=== PATIENT | female | born 1955 | race Caucasian/White ===

== ENCOUNTER → 2016-09-28 | Outpatient (CLI) | payer MEDICAID ==
[~2016-09-28] MED LIST: MYCOSTATIN(NYST15 GM TOP; NORCO 5-325 MG1 TAB PO; NORVASC2.5 MG PO; PRINIVIL OR ZES10 MG PO
[2016-09-28 10:08] LABS: BASOPHIL # 0.1 K/uL (0.0-0.2); BASOPHIL % 0.8 %; EOSINOPHIL # 0.2 K/uL (0.0-0.5); EOSINOPHIL % 2.7 %; HEMOGLOBIN 16.1 g/dL (10.0-15.0); IMMATURE GRANULOCYTE % 0.5 %; LYMPHOCYTE # 1.5 K/uL (0.8-4.0); LYMPHOCYTE % 24.2 %; MCH 32.8 pg (27.0-34.0); MCHC 32.9 gm/dL (32.0-36.5); MCV 99.8 fl (83.0-98.0); MONOCYTE # 0.7 K/uL (0.0-1.0); MONOCYTE % 10.5 %; MPV 10.2 fl (9.4-12.4); NEUTROPHIL # (ANC) 3.8 K/uL (1.8-7.8); NEUTROPHIL % 61.3 %; NRBC % 0 /100WBC (0-0.00); PLATELET COUNT 95 K/uL (150-450); RBC 4.91 M/uL (3.50-5.50); RDW-CV 13.5 % (11.9-14.6); WBC 6.2 K/uL (4.0-11.0)
[2016-09-28 10:30] LABS: ALBUMIN 3.7 gm/dL (3.5-5.0); ALK PHOS 93 IU/L (33-138); ALT 35 IU/L (12-78); ANION GAP 9.2 (10.0-19.0); AST 24 IU/L (10-40); BLOOD UREA NITROGEN 6 mg/dL (6-24); CHLORIDE 105 mMol/L (96-110); CO2 30 mMol/L (22-32); CREATININE 0.7 mg/dL (0.5-1.1); POTASSIUM 4.2 mMol/L (3.7-5.1); SODIUM 140 mMol/L (135-145); TOTAL BILIRUBIN 0.8 mg/dL (0.0-1.5); TOTAL PROTEIN 8.2 g/dL (6.0-8.4)
[2016-09-28 10:45] LABS: ESTIMATED GFR (MDRD EQUATION) > 60
== END | disposition disaster alternative care site (69) ==
LOC: GRAD 09:33
PROVIDERS: Internal Medicine Hematology & Oncology
DX: C34.32 Malignant neoplasm of lower lobe, left bronchus or lung (principal); D69.6 Thrombocytopenia, unspecified; D53.1 Other megaloblastic anemias, not elsewhere classified; K74.60 Unspecified cirrhosis of liver; R91.8 Other nonspecific abnormal finding of lung field

== ENCOUNTER → 2016-12-28 | Outpatient (CLI) | payer MEDICAID | END | disposition disaster alternative care site (69) | LOC: GRAD 10:34 | DX: C34.32 Malignant neoplasm of lower lobe, left bronchus or lung (principal); D69.6 Thrombocytopenia, unspecified; D53.1 Other megaloblastic anemias, not elsewhere classified; R91.1 Solitary pulmonary nodule; Z98.890 Other specified postprocedural states; Z90.2 Acquired absence of lung [part of] | CPT/HCPCS: Q9967 ==